=== PATIENT | female | born 1985 | race Two or more races ===

== ENCOUNTER 2024-02-03 13:01 | Emergency (ER) | payer MEDICAID ==
[~2024-02-03] VITALS: Ht 167.6 cm; Wt 61.4 kg
[2024-02-03 13:11] VITALS: O2SAT 98
[2024-02-03] MEDS: BACITRACIN ZINC OINT UDPKT TOP ONE (15:40)
[2024-02-03] MEDS: LIDOCAINE HCL/PF 1% 10 MG/ML 5ML VIAL INFIL ONE (15:40)
[2024-02-03] MEDS ORDERED: SULF1TAB48 MT (16:08)
[2024-02-03] MEDS ORDERED: CLIN-194 MT (16:08)
[2024-02-03] MEDS ORDERED: IBUP-2028 MT (16:10)
[2024-02-03 16:48] VITALS: BP 106/88; PULSE 88; RESP 18; TEMP 98.3
== END 2024-02-03 16:55 | disposition home or self-care (01) ==
LOC: ER 13:01
DX: L02.31 Cutaneous abscess of buttock (principal); Z88.8 Allergy status to other drugs, medicaments and biological substances
CPT/HCPCS: 10060; 99284; J3490; Z7610 ×2